=== PATIENT | female | born 2005 | race Two or more races ===

== ENCOUNTER 2024-08-22 14:22 | Emergency (ER) | payer OTHER ==
[~2024-08-22] VITALS: Ht 157.5 cm; Wt 50.8 kg
[2024-08-22 17:01] LABS: MEAN CELL VOLUME 91.3 fL (80.00-100.00); MEAN CORPUSCULAR HEMOGLOBIN 32.1 pg (27.00-32.0); MEAN CORPUSCULAR HGB CONC 35.2 g/dl (32.0-36.0); PLATELET COUNT 231 K/uL (150-450); RED BLOOD COUNT 3.73 M/uL (4.00-6.00); RED CELL DISTRIBUTION WIDTH 13.9 % (11.5-14.5)
== END 2024-08-22 18:20 | disposition home or self-care (01) ==
LOC: ER 14:24
PROVIDERS: General Practice
DX: J06.9 Acute upper respiratory infection, unspecified (principal); Z20.822 Contact with and (suspected) exposure to COVID-19

== ENCOUNTER 2024-10-18 21:06 | Emergency (ER) | payer OTHER ==
[~2024-10-18] VITALS: Ht 157.5 cm; Wt 55.3 kg
[2024-10-18] MEDS ORDERED: CEFTRIAXONE SODIUM 1,000 MG VIAL IM STA (22:04)
[2024-10-18] MEDS ORDERED: CEFTRIAXONE SODIUM 1,000 MG VIAL ONE (22:24)
== END 2024-10-18 22:38 | disposition home or self-care (01) ==
LOC: ER 21:09
DX: O26.893 Other specified pregnancy related conditions, third trimester (principal); K08.89 Other specified disorders of teeth and supporting structures; Z3A.30 30 weeks gestation of pregnancy

== ENCOUNTER 2024-12-17 15:00 | Inpatient (IN) | payer OTHER ==
[~2024-12-17] VITALS: Ht 160 cm; Wt 63.0 kg
[2024-12-19] VITALS (8 sets, daily range): BP systolic 108–137; BP diastolic 55–71
[2024-12-19] MEDS ORDERED: AMPICILLIN SODIUM 2,000 MG VIAL ONE (12:39)
[2024-12-19] MEDS ORDERED: PRENATAL TABLE1 EAC1 PO (12:41)
[2024-12-19] MEDS ORDERED: VALTREX1000 MG PO (12:42)
[2024-12-19] MEDS ORDERED: AMPICILLIN SODIUM 2,000 MG VIAL IV ONE (12:45)
[2024-12-19] MEDS ORDERED: RINGERS SOLUTION,LACTATED 1,000 ML IV SCH (12:45)
[2024-12-19 13:07] LABS: PH,URINE 6.5 (5.0-8.0); URINE APPEARANCE Turbid; URINE BILIRRUBIN Negative (NEGATIVE); URINE BLOOD Negative; URINE COLOR Dark Yellow; URINE GLUCOSE Negative (NEGATIVE); URINE KETONE Trace (NEGATIVE); URINE LEUKOCYTE Small; URINE NITRATE Negative; URINE PROTEIN 30 (NEGATIVE)
[2024-12-19 13:11] LABS: URINE CAST 5.59 uL (0.0-1.40); URINE RBC 4.4 uL (0.0-20.8); URINE WBC 460.1 uL (0.0-23.2)
[2024-12-19 13:15] LABS: HEMATOCRIT 34.4 % (36.0-45.00); HEMOGLOBIN 11.3 g/dL (12.0-15.00); MEAN CELL VOLUME 75.7 fL (80.00-100.00); MEAN CORPUSCULAR HEMOGLOBIN 24.8 pg (27.00-32.0); MEAN CORPUSCULAR HGB CONC 32.8 g/dl (32.0-36.0); PLATELET COUNT 227 K/uL (150-450); RED BLOOD COUNT 4.55 M/uL (4.00-6.00)
[2024-12-19 13:24] LABS: INR < 0.93; PARTIAL THROMBOPLASTIN TIME 24.8 SECONDS (22.0-34.0); PROTHROMBIN TIME 9.8 SECONDS (9.0-11.5)
[2024-12-19 13:44] LABS: BILIRUBIN TOTAL 0.57 mg/dL (0.3-1.2); CALCIUM 9.4 mg/dL (8.5-10.1); CREATININE SERUM 0.52 mg/dL (0.55-1.02); GFR 150.34; GLOBULINA 3.4 G/DL (2.4-3.5); POTASSIUM 3.8 mEq/L (3.5-5.1); TOTAL PROTEIN 6.4 gm/dL (6.4-8.2)
[2024-12-19 13:47] LABS: URINE BACTERIA > 9821.5 uL (0.0-1933); URINE EPITHELIAL CELLS > 201.7 uL (0.0-38.8); URINE MUCUS SCANT
[2024-12-19] MEDS ORDERED: ONDANSETRON HCL 2 MG/ML VIAL ONE (14:05)
[2024-12-19] MEDS ORDERED: ONDANSETRON HCL 2 MG/ML VIAL IV ONE (14:15)
[2024-12-19] MEDS ORDERED: MORPHINE SULFATE 4 MG/ML CARTRIDGE IV ONE (14:15)
[2024-12-19] MEDS ORDERED: AMPICILLIN SODIUM 1,000 MG VIAL IV SCH (16:00)
[2024-12-19] MEDS ORDERED: OXYTOCIN 20 UNITS/500ML RL PIGGYBAG IV ONE (16:15)
[2024-12-19] MEDS ORDERED: OXYTOCIN 500 ML IV SCH (16:30)
[2024-12-19] MEDS ORDERED: OXYTOCIN 20 UNITS/1000ML RL PIGGYBAG IV ONE ×2 (16:54→19:21)
[2024-12-19] MEDS ORDERED: ERYTHROMYCIN BASE OPHT 1GM EACH TUBE OP ONE ×2 (16:54→18:30)
[2024-12-19] MEDS ORDERED: CHLORHEXIDINE GLUCONATE 120 ML BOTTLE TOP ONE ×2 (16:55→18:30)
[2024-12-19] MEDS ORDERED: LIDOCAINE HCL 1% 10ML VIAL ONE (16:55)
[2024-12-19] MEDS ORDERED: IBUprofen 600 MG TABLET PO SCH (17:45)
[2024-12-19] MEDS ORDERED: OXYTOCIN 1,000 ML IV SCH (18:30)
[2024-12-19] MEDS ORDERED: LIDOCAINE HCL 1% 10ML VIAL IJ ONE (18:30)
[2024-12-20] VITALS: BP 102/65
[2024-12-20 04:00] VITALS: BP 98/49
[2024-12-20 08:17] VITALS: BP 105/62
[2024-12-20] MEDS ORDERED: IBUprofen 600 MG TABLET PO SCH (08:42)
[2024-12-20 16:38] VITALS: BP 108/67
[2024-12-20 20:00] VITALS: BP 135/62
[2024-12-21] VITALS: BP 123/71
[2024-12-21 08:29] VITALS: BP 95/60
[2024-12-21 12:15] VITALS: BP 105/69
[2024-12-21 16:37] VITALS: BP 108/66
== END 2024-12-21 17:23 | disposition home or self-care (01) | DRG 807 ==
LOC: OB/GYN 12-19 12:36 → LDR 12-19 12:36 → OB/GYN 12-19 18:44
PROVIDERS: ADMIT Specialist; ATTEND Specialist
PROC: 10E0XZZ Delivery of Products of Conception, External Approach (ICD-10-PCS; principal; 2024-12-19)
PROC: 0KQM0ZZ Repair Perineum Muscle, Open Approach (ICD-10-PCS; 2024-12-19)
PROC: 4A1HXCZ Monitoring of Products of Conception, Cardiac Rate, External Approach (ICD-10-PCS; 2024-12-19)
DX: O70.1 Second degree perineal laceration during delivery (principal); Z37.0 Single live birth; O99.824 Streptococcus B carrier state complicating childbirth; Z3A.39 39 weeks gestation of pregnancy